=== PATIENT | female | born 1970 | race African-American/Black ===

== ENCOUNTER 2017-07-10 16:17 | Emergency (ER) | payer MEDICAID ==
[~2017-07-10] VITALS: Ht 170.2 cm; Wt 73.0 kg
[~2017-07-10 16:17] MED LIST: AMLO2.5T2 PO; FOLI0.4T2 PO; INSU100C6 SQ; METO-396 PO; [UNRECOGNIZED DRUG - CODE] PO
[2017-07-10 17:15] VITALS: BP 129/93
[2017-07-10] MEDS ORDERED: BACITRACIN ZINC OINT UDPKT TOP ONE (17:15)
[2017-07-10] MEDS ORDERED: IBUPROFEN 800MG TABLET PO ONE (17:15)
[2017-07-10] MEDS ORDERED: AZITHROMYCIN 500 MG TABLET PO ONE (17:15)
[2017-07-10] MEDS ORDERED: CEFTRIAXONE SODIUM 250 MG/VIAL IM ONE (17:15)
[2017-07-10 17:44] LABS: CLARITY URINE CLEAR (CLEAR); COLOR URINE YELLOW (YELLOW); GLUCOSE URINE 3+ (NEGATIVE); KETONES URINE NEGATIVE (NEGATIVE); LEUKOCYTE ESTERASE URINE 1+ (NEGATIVE); NITRITE URINE NEGATIVE (NEGATIVE); OCCULT BLOOD URINE NEGATIVE (NEGATIVE); PROTEIN URINE TRACE (NEGATIVE); UROBILINOGEN URINE 0.2 E.U./dL (0.2-1.0)
[2017-07-10] MEDS ORDERED: LIDOCAINE HCL 1%/EPI 1:200,000 30 ML VIAL MC ONE (17:45)
[2017-07-10 17:46] LABS: HCG SCREEN NEGATIVE
[2017-07-10] MEDS ORDERED: LIDOCAINE HCL 1% 20ML VIAL (Pyxis) INJ MC ONE (18:00)
== END 2017-07-10 18:49 | disposition home or self-care (01) ==
LOC: ER 16:23
DX: S91.312A Laceration without foreign body, left foot, initial encounter (principal); N39.0 Urinary tract infection, site not specified; Z20.2 Contact with and (suspected) exposure to infections with a predominantly sexual mode of transmission; I10 Essential (primary) hypertension; E11.9 Type 2 diabetes mellitus without complications; F17.210 Nicotine dependence, cigarettes, uncomplicated; F14.10 Cocaine abuse, uncomplicated; Z79.4 Long term (current) use of insulin; W26.0XXA Contact with knife, initial encounter; Y93.89 Activity, other specified; Y92.018 Other place in single-family (private) house as the place of occurrence of the external cause
CPT/HCPCS: 81001; 84703; 87210; 96372; 99284; J0696; J3490